=== PATIENT | female | born 1980 | race Caucasian/White ===

== ENCOUNTER 2019-05-15 19:01 | Emergency (ER) | payer OTHER ==
[~2019-05-15] VITALS: Ht 177.8 cm; Wt 102.6 kg
--- NOTE | 2019-05-15 19:35 | ED Integumentary General ---
General Chief Complaint: Skin/Wound Problems Stated Complaint: MRSA ON BACK Source: patient Exam Limitations: no limitations History of Present Illness Date Seen by Provider: May 15, 2019 Time Seen by Provider: 19:34 Initial Comments 38-year-old female presents with "MRSA on my back" patient reports a previous history there is had Surgeries on a couple of home. She reports that usually requires clindamycin. That she started noticing the symptoms yesterday. She does not have any fevers chills. Allergies and Home Medications Home Medications Clindamycin HCl 300 Mg Capsule, 300 MG PO TID Prescribed by: KAYLEIGH MORELOS on 05/15/191946 Patient Home Medication List Home Medication List Reviewed: Yes Review of Systems Review of Systems Constitutional: no symptoms reported EENTM: no symptoms reported Cardiovascular: no symptoms reported Gastrointestinal: no symptoms reported Genitourinary: no symptoms reported Skin: see HPI Past Dorasny-Dumzcg-Mdfxti Hx Past Med/Social Hx: Reviewed Nursing Past Med/Soc Hx Patient Social History Recent Foreign Travel: No Contact w/Someone Who Travel: No Physical Abuse: No Sexual Abuse: No Mistreated: No Fear: No Physical Exam Vital Signs Vital Signs - First Documented 05/15/19 05/15/19 19:34 20:08 Temp 36.4 Pulse 78 Resp 18 B/P (MAP) 133/88 (103) Pulse Ox 98 O2 Delivery Room Air Capillary Refill : General Appearance: WD/WN, no apparent distress Cardiovascular: regular rate, rhythm Respiratory: lungs clear, normal breath sounds, no respiratory distress Back: No vertebral tenderness Extremities: normal range of motion Neurologic/Psychiatric: normal mood/affect, oriented x 3 Skin: other (small area approximately 1.5 cm that is erythematous with some induration but no abscess. There is a scab over the indurated area.) Progress/Results/Core Measures Results/Orders Vital Signs/I&O 05/15/19 05/15/19 19:34 20:08 Temp 36.4 Pulse 78 84 Resp 18 18 B/P (MAP) 133/88 (103) 144/78 Pulse Ox 98 O2 Delivery Room Air Room Air Departure Impression Primary Impression: Abscess Disposition: 01 HOME, SELF-CARE Condition: Stable Departure-Patient Inst. Patient Instructions: MRSA (DC), Cellulitis (Skin Infection), Adult (DC) Add. Discharge Instructions: The emergency department focuses on treating and ruling out life-threatening diseases. Whenever possible, a diagnosis is given. However, most patients are given an impression based on their history, physical exam, and workup during your brief time in the ER. Information about probable diagnosis and other educational material has been provided. Please take the time to read and understand this information. It is very important that you follow up with a physician as discussed during the visit today. Failure to adhere to your follow-up instructions may lead to severe disability, injury, or so please make sure to keep your appointments or obtain one as requested. Please keep in mind the emergency department is not designed to your primary care or "family doctor" and nonurgent issues are best evaluated by an outpatient physician All discharge instructions reviewed with patient and/or family. Voiced understanding. Scripts Clindamycin HCl (Clindamycin HCl) 300 Mg Capsule 300 MG PO TID for 10 Days, #30 CAP Prov: KAYLEIGH MORELOS DO 05/15/19 KAYLEIGH MORELOS DO May 15, 2019 19:35
[2019-05-15] MEDS ORDERED: CLIN300C11 PO (19:47)
[2019-05-15 20:08] VITALS: BP 144/78
--- OUTSIDE RECORDS SUMMARY | 2019-05-24 19:42 | XMS REPORT ---
Author Author Elaine PÉREZ Organization [facility] [address] Address [address] [place] [address] Care Team Providers Care Door Manager Name Role Phone ZARA PÉREZ Unavailable PROBLEMS Unknown Problems ALLERGIES Substance Reaction Event Type Date Status CODIENE Unknown Non Drug Allergy Feb, Active ENCOUNTERS Encounter Location Date Diagnosis [facility] [address] [place] [address] Mar, 18 [facility] [address] [place] [address] Mar, 18 [facility] [address] [place] [address] Feb, 18 Caries K02.9 and Dental examination Z01.20 [facility] [address] [id number] [address] [place] [phone] Apr, Dental examination Z01.20 [facility] [address] [id number] [address] [place] [address] [phone] Apr, Dental examination Z01.20 [facility] [address] [id number] [address] [place] [phone] Mar, Dental examination Z01.20 [facility] [address] [id number] [address] [place] [address] [phone] Feb, Dental examination Z01.20 [facility] [address] [id number] [address] [place] [phone] Jan, Encounter for dental examina tion and cleaning without abnormal findings Z01.20 IMMUNIZATIONS No Known Immunizations SOCIAL HISTORY Never Assessed REASON FOR VISIT ANDREW- tleesau PLAN OF CARE Activity Details Follow Up Next available Reason:One ho ur extraction #[address] Rodriguez per patient request VITAL SIGNS Blood pressure systolic 134 mmHg 2018-03-01 Blood pressure diastolic 98 mmHg 2018-03-01 MEDICATIONS Medication Instructions Dosage Frequency Start Date End Date Duration S tatus Zoloft 50 MG Orally Once a day 1 tablet 24h Not-Taking Brussels 5-325 MG Orally every 6 hrs 1 tablet as needed 6h 4 days Not-Taking Magic Mouthwash Apply medicated swab to sore areas of the mouth to numb the pain As needed Dip cotton swab into medication Feb, As needed Active Amoxicillin 500 MG Orally 4 times a day 2 capsules stat and then take 1 capsule 6h Feb, 10 days Active Hydrocodone Bitartrate 10 MG Orally every 12 hrs 1 capsule 12h Active Xanax 1 MG Orally Twice a day 1 tablet 12h A ctive RESULTS No Results PROCEDURES Procedure Date Ordered Result Body Site LTD ORAL EVALUATION - PROBLEM FOCUS Mar 01, 2018 PANORAMIC FILM SEE ALSO CODE [id number] Mar 01, 2018 Billing Notes on claim Mar 01, 2018 INSTRUCTIONS MEDICATIONS ADMINISTERED No Known Medications MEDICAL (GENERAL) HISTORY Type Description Date Surgical History MRSA Surgical History TUBAL LIGATION Surgical History Hysterectomy
--- OUTSIDE RECORDS SUMMARY | 2019-05-24 19:42 | XMS REPORT ---
Author Author SARAHY Elainethaddeus SHOEMAKER Organization [facility] Address [address] [place] [address] Care Team Providers Care Fire Prevention Research Engineer Name Role Phone HARDY WEATHERSA Unavailable PROBLEMS Unknown Problems ALLERGIES Substance Reaction Event Type Date Status CODIENE Unknown Non Drug Allergy Mar, Active ENCOUNTERS Encounter Location Date Diagnosis [facility] [address] [place] [address] Apr, 19 [facility] [address] [place] [phone] Apr, 19 [facility] [address] [place] [phone] Mar, 18 Dental examination Z01.20 and Caries K02.9 [facility] [address] [place] [phone] Feb, 18 Caries K02.9 and Dental examination Z01.20 [facility] [id number] [place] [phone] Apr, Dental examination Z01.20 [facility] [address] [id number] [address] [place] [phone] Apr, Dental examination Z01.20 [facility] [address] [id number] [address] [place] [phone] Mar, Dental examination Z01.20 [facility] [address] [facility] [id number] [address] [place] [phone] Feb, Dental examination Z01.20 [facility] [address] [id number] [address] [place] [phone] Jan, Encounter for dental examina tion and cleaning without abnormal findings Z01.20 IMMUNIZATIONS No Known Immunizations SOCIAL HISTORY Never Assessed REASON FOR VISIT Extraction DA/IK PLAN OF CARE Activity Details Follow Up REST Reason: VITAL SIGNS Blood pressure systolic 137 mmHg 2018-03-14 Blood pressure diastolic 95 mmHg 2018-03-14 MEDICATIONS Medication Instructions Dosage Frequency Start Date End Date Duration S tatus Magic Mouthwash Apply medicated swab to sore areas of the mouth to numb the pain As needed Dip cotton swab into medication Feb, As needed Not-Taking Amoxicillin 500 MG Orally 4 times a day 2 capsules stat and then take 1 capsule 6h Feb, 10 days Active Zoloft 50 MG Orally Once a day 1 tablet 24h Not-Taking Hydrocodone Bitartrate 10 MG Orally every 12 hrs 1 capsule 12h Active Xanax 1 MG Orally Twice a day 1 tablet 12h A ctive RESULTS No Results PROCEDURES Procedure Date Ordered Result Body Site EXTRAC ERUPTED TOOTH/EXPOSED ROOT Mar 14, 2018 Billing Notes on claim Mar 14, 2018 INSTRUCTIONS MEDICATIONS ADMINISTERED No Known Medications MEDICAL (GENERAL) HISTORY Type Description Date Surgical History MRSA Surgical History TUBAL LIGATION Surgical History Hysterectomy
--- OUTSIDE RECORDS SUMMARY | 2019-05-24 19:42 | XMS REPORT ---
Author Author Elaine WILSON Organization [facility] [place] Address [address] [place] [address] Care Team Providers Care Department Helper Name Role Phone KATIE RONI Unavailable PROBLEMS Type Condition ICD9-CM Code POV11-WL Code Onset Dates Condition S tatus SNOMED Code Problem MRSA (methicillin resistant Staphylococcus aureus) inf ection A49.02 Nov, 0 116879457 Problem Pruritus L29.9 Dec, 0 9980807 00 Problem Asthma, moderate persistent, poorly-controlled J45 .40 Mar, 0 627678904 Problem Vaginal odor N89.8 Sep, 0 3737 78587 Problem Seasonal allergic rhinitis due to pollen J30.1 Jul, 0 05429620 Problem Muscle spasm of back M62.830 Dec, 0 624154407 Problem Postoperative examination Z09 Jun, 0 611300237 Problem Tobacco use Z72.0 Dec, 0 92555 3000 Problem Severe obesity (BMI 35.0-39.9) with comorbidity E6 6.01 Sep, 0 552022444 Problem Wax in ear H61.20 August, 0 774519 002 Problem Seasonal allergic rhinitis due to pollen 477.0 Jul, 0 64667545 Problem Congestion of upper airway J98.8 May, 0 934614094 Problem Prediabetes R73.03 Sep, 0 17607 8002 Problem Asthma, moderate persistent, poorly-controlled 493.90 Mar, 0 84473633 Problem Family history of heart disease V17.49 August, 0 051080300 Problem Migraine headache 346.90 May, 0 52468087 Problem Elevated fasting glucose 790.21 Sep, 0 779566101 Problem Pruritus 698.9 Dec, 0 6533340 00 Problem MRSA (methicillin resistant Staphylococcus aureus) inf ection 041.12 Nov, 0 067503901 Problem Facial abscess 682.0 Mar, 0 20 4955434 Problem Infectious otitis externa H60.399 10 Dec, 2010 0 08479246 Problem Vaginal odor 625.8 Sep, 0 3737 17797 Problem Hx MRSA infection V12.04 Feb, 0 595477400 Problem Right wrist pain 719.43 11 May, 2016 0 48861999 Problem V22.2 Mar, 0 1216118 02 Problem Pelvic pain in female 625.9 Apr, 0 446312040 Problem Smoking 305.1 Mar, 0 1992890 07 Problem Tobacco use 305.1 16 Dec, 2014 0 88638 3000 Problem Allergic rhinoconjunctivitis J30.9 Mar, 6 0 30802553 Problem Back pain, chronic 724.5 Mar, 0 727220461 Problem Asthma 493.90 Nov, 0 9846801 01 Problem History of endometrial ablation Z98.890 Apr, 0 765817832566438 Problem Family history of hypothyroidism V18.19 August, 0 684162986 Problem History of endometrial ablation V12.59 Apr, 0 881384167977910 Problem Muscle spasm of back 724.8 Dec, 0 707437463 Problem Acute recurrent ethmoidal sinusitis 461.2 30 A , 2017 0 22126825 Problem Congestion of upper airway 519.8 11 May, 2014 0 440608230 Problem Pelvic pain in female R10.2 Apr, 0 162090432 Problem Well woman exam with routine gynecological exam V72.31 04 Feb, 2011 0 134593654981806 Problem , twins, delivered O30.009 August, 0 Problem Prediabetes 790.29 07 Sep, 2015 0 87423 8002 Problem , twins, delivered 651.01 August, 0 591521580 Problem Normal vaginal delivery 650 August, 0 87872885 Problem Z34.90 Mar, 0 7403200 02 Problem Allergic rhinoconjunctivitis 477.9 Mar, 6 0 80344874 Problem Normal vaginal delivery O80 August, 0 28683263 Problem Right wrist pain M25.531 11 May, 2016 0 86113451 Problem Facial abscess L02.01 Mar, 0 20 2659499 Problem Family history of heart disease Z82.49 August, 0 138238139 Problem Elevated fasting glucose R73.01 Sep, 0 876111166 Problem Well woman exam with routine gynecological exam Z01.419 Feb, 0 726132384099544 Problem Infectious otitis externa 380.10 10 Dec, 2010 0 16930116 Problem Migraine headache G43.909 May, 0 71231413 Problem Medication reaction T50.905A Dec, 0 Problem Smoking F17.200 Mar, 0 9351990 07 Problem Severe obesity (BMI 35.0-39.9) with comorbidity 278.01 Sep, 0 218866489 Problem Asthma J45.909 Nov, 0 5289384 01 Problem Postoperative examination V67.00 Jun, 0 931308352 Problem Cutaneous abscess of groin L02.214 15 Oct, 2013 0 899174394 Problem Acute recurrent ethmoidal sinusitis J01.21 30 A 2017 0 82220492 Problem Other chronic pain G89.29 Active 8 2359269 Problem Type 2 diabetes mellitus with unspecified complications E11.8 Active 38880497 Problem Hx MRSA infection Z86.14 Feb, 0 478509599 Problem Wax in ear 380.4 August, 0 644474 002 Problem Type 2 diabetes mellitus with hyperglycemia E11.65 Active 150549525555014 Problem Cellulitis and abscess of trunk 682.2 Jul, 0 542044923 Problem Cutaneous abscess of groin 682.2 15 Oct, 2013 0 988558598 Problem [place] eye disease H10.029 11 May, 2014 0 364545386 Problem Family history of hypothyroidism Z83.49 August, 0 451706991 Problem [place] eye disease 372.03 11 May, 2014 0 520736386 Problem Anxiety F41.9 Active 29002971 Problem Back pain, chronic M54.9 10 Mar, 2012 0 125025861 Problem Elevated triglycerides with high cholesterol E78.2 Active 758076181 Problem Cellulitis and abscess of trunk L03.319 Jul, 0 234648220 Problem MRSA (methicillin resistant Staphylococcus aureus) A49.02 Active 173944507 Problem Depressed mood F32.9 Active 67687 9004 Problem Medication reaction E947.9 Dec, 0 ALLERGIES No Information ENCOUNTERS Encounter Location Date Diagnosis [facility] [address] [place] [address] August, [facility] [place] [id number] [place] [phone] August, [facility] [place] [id number] [place] [address], [place] [address] August, Elevated fasting glucose R73.01 ; Elevated triglycerides with high cholesterol E78.2 and Type 2 diabetes mellitus with unspecified complications E11.8 [facility] [id number] [place] [address], [place] [address] August, [facility] [address] [address] August, [facility] [address] [address] August, [facility] [place] [address] [place] [address], [place] [address] August, [facility] [place] [address] [place] [phone] August, Anxiety F41.9 [facility] [address] [facility] [id number] [address] [place] [address] August, [facility] [place] [id number] [place] [address] August, [facility] [place] [address] [place] [phone] August, Elevated fasting glucose R73.01 ; Type 2 diabetes mellitus with unspecified complications E11.8 and Acute mucoid otitis media of both ears H65.113 [facility] [address] [place] [address] Jul, Low back pain M54.5 [facility] [place] [address] [place] [address] Jul, Low back pain M54.5 [facility] [address] [place] [address] Jul, Anxiety F41.9 [facility] [address] [place] [address], [place] [address] Jun, [facility] [address] [place] [phone] Jun, Anxiety F41.9 ; Low back pain M54.5 and Type 2 diabetes mellitus with unspecified complications E11.[address] [address] Jun, [address] [address] May, Abdominal wall hernia K43.9 ; Anxiety F41.9 ; Depressed mood F32.9 ; Elevated triglycerides with high cholesterol E78.2 ; Type 2 diabetes mellitus with unspecified complications E11.8 ; Type 2 diabetes mellitus with hyperglycemia E11.65 and Former smoker Z87.891 [facility] [address] [facility] [id number] [address] [place] [address] May, [address] [address] May, Elevated fasting glucose R73.01 and Elevated triglycerides with high cholesterol E78.[address] [address] May, Anxiety F41.9 and Low back pain M54.[address] [address] May, Other specified abdominal hernia with obstruction and without gangrene K45.0 ; Other chronic pain G89.29 ; Depressed mood F32.9 ; Anxiety F41.9 ; Former smoker Z87.891 ; Elevated fasting glucose R73.01 and Elevated triglycerides with high cholesterol E78.[address] [address] May, Throat pain R07.0 ; Left acute suppurative otitis media H66.002 and Depressed mood F32.[address] [address] May, [address] [address] May, [address] [address] May, [facility] [address] [place] [address] May MRSA (methicillin resistant Staphylococcus aureus) A49.02 [facility] [address] [place] [address] May MRSA (methicillin resistant Staphylococcus aureus) A49.02 [facility] [address] [place] [address] Apr MRSA (methicillin resistant Staphylococcus aureus) A49.02 [facility] [address] [place] [address] Apr, Anxiety F41.9 ; Umbilical hernia without obstruction and without gangrene K42.9 ; Other chronic pain G89.29 and Low back pain M54.[address] [place] [address] 14 Apr, 19 Caries K02.9 ; Dental examination Z01.20 and Periodontitis K05.[address] [place] [phone] 03 Apr, 19 Dental examination Z01.20 and Caries K02.9 [facility] [address] [id number] [address] [place] [phone] 30 Mar, [address] [place] [address] 10 Mar, 18 Dental examination Z01.20 and Caries K02.[address] [place] [address] 27 Feb, 18 Caries K02.9 and Dental examination Z01.20 [facility] [address] [id number] [address] [place] [phone] Feb, [facility] [address] [id number] [address] [place] [phone] Jan, [facility] [address] [id number] [address] [place] [phone] Apr, Dental examination Z01.20 [facility] [address] [id number] [address] [place] [phone] Apr, Dental examination Z01.20 [facility] [address] [id number] [address] [place] [address] Mar, Dental examination Z01.20 [facility] [address] [id number] [address] [place] [phone] Feb, Dental examination Z01.20 [facility] [address] [facility] [id number] [address] [place] [address] Jan, Encounter for dental examina tion and cleaning without abnormal findings Z01.20 IMMUNIZATIONS No Known Immunizations SOCIAL HISTORY Never Assessed REASON FOR VISIT Waiting for call back PLAN OF CARE VITAL SIGNS MEDICATIONS Unknown Medications RESULTS No Results PROCEDURES No Known procedures INSTRUCTIONS MEDICATIONS ADMINISTERED No Known Medications MEDICAL (GENERAL) HISTORY Type Description Date Medical History asthma Medical History history of MRSA Medical History migraines Medical History muscle spasms of back Medical History prediabeties Medical History seasonal allergies Medical History obesity Surgical History MRSA Surgical History TUBAL LIGATION Surgical History Hysterectomy Surgical History hernia surgery Hospitalization History see surgical history
--- OUTSIDE RECORDS SUMMARY | 2019-05-24 19:42 | XMS REPORT ---
Author Author Elaine HERNANDEZ Organization [facility] Address [address] [place] [address] Care Team Providers Care Cable Splicer Name Role Phone SHAHEED HERNANDEZ Unavailable PROBLEMS Type Condition ICD9-CM Code DFO90-LW Code Onset Dates Condition S tatus SNOMED Code Problem MRSA (methicillin resistant Staphylococcus aureus) inf ection A49.02 Nov, 0 286379638 Problem Pruritus L29.9 Dec, 0 8597195 00 Problem Asthma, moderate persistent, poorly-controlled J45 .40 Mar, 0 095051020 Problem Vaginal odor N89.8 Sep, 0 3737 83518 Problem Seasonal allergic rhinitis due to pollen J30.1 Jul, 0 32323997 Problem Muscle spasm of back M62.830 Dec, 0 804871938 Problem Postoperative examination Z09 Jun, 0 360634399 Problem Tobacco use Z72.0 Dec, 0 76058 3000 Problem Severe obesity (BMI 35.0-39.9) with comorbidity E6 6.01 Sep, 0 776066827 Problem Wax in ear H61.20 August, 0 627814 002 Problem Seasonal allergic rhinitis due to pollen 477.0 Jul, 0 39793316 Problem Congestion of upper airway J98.8 May, 0 726139727 Problem Prediabetes R73.03 Sep, 0 77030 8002 Problem Asthma, moderate persistent, poorly-controlled 493.90 Mar, 0 48106364 Problem Family history of heart disease V17.49 August, 0 323422587 Problem Migraine headache 346.90 May, 0 03862031 Problem Elevated fasting glucose 790.21 Sep, 0 123462312 Problem Pruritus 698.9 Dec, 0 3186708 00 Problem MRSA (methicillin resistant Staphylococcus aureus) inf ection 041.12 Nov, 0 138908570 Problem Facial abscess 682.0 Mar, 0 20 6498041 Problem Infectious otitis externa H60.399 10 Dec, 2010 0 56457416 Problem Vaginal odor 625.8 Sep, 0 3737 46102 Problem Hx MRSA infection V12.04 Feb, 0 339042659 Problem Right wrist pain 719.43 11 May, 2016 0 03642716 Problem V22.2 02 Mar, 2007 0 4680016 02 Problem Pelvic pain in female 625.9 Apr, 0 214664077 Problem Smoking 305.1 Mar, 0 5302271 07 Problem Tobacco use 305.1 16 Dec, 2014 0 58478 3000 Problem Allergic rhinoconjunctivitis J30.9 Mar, 201 6 0 59185668 Problem Back pain, chronic 724.5 Mar, 0 460150249 Problem Asthma 493.90 Nov, 0 4425208 01 Problem History of endometrial ablation Z98.890 Apr, 0 785149441691182 Problem Family history of hypothyroidism V18.19 August, 0 151306729 Problem History of endometrial ablation V12.59 Apr, 0 963748978059168 Problem Muscle spasm of back 724.8 Dec, 0 822348592 Problem Acute recurrent ethmoidal sinusitis 461.2 30 A , 2017 0 26561670 Problem Congestion of upper airway 519.8 11 May, 2014 0 674613818 Problem Pelvic pain in female R10.2 Apr, 0 753498286 Problem Well woman exam with routine gynecological exam V72.31 04 Feb, 2011 0 [id number] Problem , twins, delivered O30.009 August, 0 Problem Prediabetes 790.29 07 Sep, 2015 0 78374 8002 Problem , twins, delivered 651.01 August, 0 216893563 Problem Normal vaginal delivery 650 August, 0 56735042 Problem Z34.90 Mar, 0 0579634 02 Problem Allergic rhinoconjunctivitis 477.9 Mar, 201 6 0 95524981 Problem Normal vaginal delivery O80 August, 0 73857350 Problem Right wrist pain M25.531 11 May, 2016 0 29269846 Problem Facial abscess L02.01 Mar, 0 20 6573518 Problem Family history of heart disease Z82.49 August, 0 543736764 Problem Elevated fasting glucose R73.01 Sep, 0 155031730 Problem Well woman exam with routine gynecological exam Z01.419 Feb, 0 513734616963664 Problem Infectious otitis externa 380.10 10 Dec, 2010 0 83404215 Problem Migraine headache G43.909 May, 0 56184220 Problem Medication reaction T50.905A Dec, 0 Problem Smoking F17.200 Mar, 0 2388465 07 Problem Severe obesity (BMI 35.0-39.9) with comorbidity 278.01 Sep, 0 369956273 Problem Asthma J45.909 Nov, 0 6793248 01 Problem Postoperative examination V67.00 Jun, 0 204109157 Problem Cutaneous abscess of groin L02.214 Oct, 0 318485947 Problem Acute recurrent ethmoidal sinusitis J01.21 30 A 2017 0 04918510 Problem Other chronic pain G89.29 Active 8 6038497 Problem Type 2 diabetes mellitus with unspecified complications E11.8 Active 96790692 Problem Hx MRSA infection Z86.14 Feb, 0 956231854 Problem Wax in ear 380.4 August, 0 683521 002 Problem Type 2 diabetes mellitus with hyperglycemia E11.65 Active 133105066266056 Problem Cellulitis and abscess of trunk 682.2 Jul, 0 303570649 Problem Cutaneous abscess of groin 682.2 15 Oct, 2013 0 131103980 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, 2014 0 403999735 Problem Family history of hypothyroidism Z83.49 August, 0 537422428 Problem Arrington eye disease 372.03 11 May, 2014 0 618455835 Problem Anxiety F41.9 Active 35545855 Problem Back pain, chronic M54.9 10 Mar, 2012 0 560233579 Problem Elevated triglycerides with high cholesterol E78.2 Active 597080203 Problem Cellulitis and abscess of trunk L03.319 Jul, 0 448706325 Problem MRSA (methicillin resistant Staphylococcus aureus) A49.02 Active 295446485 Problem Depressed mood F32.9 Active 09330 9004 Problem Medication reaction E947.9 Dec, 0 ALLERGIES No Information ENCOUNTERS Encounter Location Date Diagnosis [facility] [address] [place] [address] 26 Sep, 2018 Anxiety F41.9 and Low back pain M54.5 [facility] [place] [address] [place] [address] 18 Sep, 2018 Type 2 diabetes mellitus with hyperglycemia E11.65 [facility] [place] [address] [place] [address] 14 Sep, 2018 [facility] [place] [id number] [place] [address] [address] Sep, [facility] [place] [id number] [place] [address] [place] [address] Sep, Low back pain M54.5 [facility] [place] [id number] [place] [address] [place] [address] 05 Sep, 2018 Anxiety F41.9 [facility] [place] [id number] [place] [address] [place] [address] Sep, Elevated fasting glucose R73.01 ; Elevated triglycerides with high cholesterol E78.2 and Type 2 diabetes mellitus with unspecified complications E11.8 [facility] [place] [id number] [place] [address] [place] [address] August, [facility] [place] [id number] [place] [address] [place] [address] August, [facility] [place] [id number] [place] [address] [place] [address] August, [facility] [place] [id number] [place] [address] [place] [address] August, [facility] [place] [id number] [place] [address], [place] [address] August, [facility] [place] [id number] [place] [address] [address] August, [facility] [place] [id number] [place] [address] [place] [address] August, Elevated fasting glucose R73.01 ; Elevated triglycerides with high cholesterol E78.2 and Type 2 diabetes mellitus with unspecified complications E11.8 [facility] [place] [id number] [place], [place] [address] [place] [address] August, [facility] [address] [place] [address] August, [facility] [place] [id number] [place], [place] [address] [place] [address] August, [facility] [address] [address] August, [address] [address] August, Anxiety F41.9 [place] [address] [facility] [id number] [address] [place] [address] August, [address] [address] August, [address] [address] August, Elevated fasting glucose R73.01 ; Type 2 diabetes mellitus with unspecified complications E11.8 and Acute mucoid otitis media of both ears H65.[address] [address] Jul, Low back pain M54.[address] [address] Jul, Low back pain M54.[address] [address] Jul, Anxiety F41.[address] [address] Jun, [address] [address] Jun, Anxiety F41.9 ; Low back pain M54.5 and Type 2 diabetes mellitus with unspecified complications E11.[address] [address] Jun, [address] [address] May, Abdominal wall hernia K43.9 ; Anxiety F41.9 ; Depressed mood F32.9 ; Elevated triglycerides with high cholesterol E78.2 ; Type 2 diabetes mellitus with unspecified complications E11.8 ; Type 2 diabetes mellitus with hyperglycemia E11.65 and Former smoker Z87.891 [place] [address] [facility] [id number] [address] [place] [address] May, [address] [address] May, Elevated fasting glucose R73.01 and Elevated triglycerides with high cholesterol E78.[address] [address] May, Anxiety F41.9 and Low back pain M54.[address] [address] 15 May, 2018 Other specified abdominal hernia with obstruction and without gangrene K45.0 ; Other chronic pain G89.29 ; Depressed mood F32.9 ; Anxiety F41.9 ; Former smoker Z87.891 ; Elevated fasting glucose R73.01 and Elevated triglycerides with high cholesterol E78.[address] [address] May, Throat pain R07.0 ; Left acute suppurative otitis media H66.002 and Depressed mood F32.[address] [address] May, [address] [address] May, [address] [address] May, [place] [address] [place] [address] May MRSA (methicillin resistant Staphylococcus aureus) A49.02 [place] [address] [place] [address] May MRSA (methicillin resistant Staphylococcus aureus) A49.[address] [address] Apr MRSA (methicillin resistant Staphylococcus aureus) A49.[address] [address] Apr, Anxiety F41.9 ; Umbilical hernia without obstruction and without gangrene K42.9 ; Other chronic pain G89.29 and Low back pain M54.5 [facility] [address] [place] [address] 14 Apr, 19 Caries K02.9 ; Dental examination Z01.20 and Periodontitis K05.30 [facility] [address] [place] [address] 03 Apr, 19 Dental examination Z01.20 and Caries K02.9 [facility] [address] [facility] [id number] [address] [place] [address] 30 Mar, 2018 [facility] [address] [place] [address] Mar, 18 Dental examination Z01.20 and Caries K02.9 [facility] [address] [place] [address] 27 Feb, 18 Caries K02.9 and Dental examination Z01.20 [facility] [address] [facility] [id number] [address] [place] [address] Feb, [facility] [address] [id number] [address] [place] [address] Jan, [facility] [address] [id number] [address] [place] [phone] Apr, Dental examination Z01.20 [facility] [id number] [place] [id number] Apr, Dental examination Z01.20 [facility] [address] [facility] [id number] [address] [place] [address] Mar, Dental examination Z01.20 [facility] [address] [id number] [address] [place] [phone] Feb, Dental examination Z01.20 [facility] [address] [facility] [id number] [address] [place] [address] Jan, Encounter for dental examina tion and cleaning without abnormal findings Z01.20 IMMUNIZATIONS No Known Immunizations SOCIAL HISTORY Never Assessed REASON FOR VISIT Medication refill request PLAN OF CARE VITAL SIGNS MEDICATIONS Medication Instructions Dosage Frequency Start Date End Date Duration S tatus Xanax 1 MG Orally 3 times a day 1 tablet 8h May, 28 days Active Hydrocodone-Acetaminophen 10-325 MG Orally TID PRN 1 tablet as need ed Jun, 28 days Active Trulicity 0.75 MG/0.5ML Subcutaneous once weekly as directed May, 4 weeks Active RESULTS No Results PROCEDURES No Known procedures [...]
--- OUTSIDE RECORDS SUMMARY | 2019-05-24 19:43 | XMS REPORT ---
Author Author Elaine WILSON Organization [employer] Address Unknown Phone Unavailable Care Team Providers Care Boiler Water Tester Name Role Phone SUNI WILSON CP Unavailable Allergies, Adverse Reactions, Alerts Substance Reaction Event Type CODIENE Info Not Available Non Drug Allergy Problems Problem Type Condition Code Onset Dates Condition Statu s Assessment Encounter for dental examina tion and cleaning without abnormal findings Z01.20 Active Medications Medication Code System Code Instructions Start Date End Date Status Dosage Hydrocodone Bitartrate [facility] [address]-70 10 MG Orally every 12 hrs 1 capsule Xanax [facility] [address]-16 1 MG Orally Twice a day 1 tablet Zoloft [facility] [address]-62 50 MG Orally Once a day 1 tablet Procedures Procedure Coding System Code Date INTRAORL-PERIAPICAL 1 FILM 08431 CPT-4 D0220 Feb 03, 2016 INTRAORL-PERIAPICAL EA ADD FILM CPT-4 D0230 Feb 03, 2016 COMP ORAL EVALUATION - NEW/EST PT CPT-4 D0150 Feb 03, 2016 Full mouth debridement CPT-4 D4355 Feb 02, 2 016 INTRAORL-PERIAPICAL EA ADD FILM CPT-4 D0230 Feb 03, 2016 BITEWINGS - FOUR FILMS CPT-4 D0274 Feb 02, 2 016 TOPICAL FLUORIDE VARNISH CPT-4 D1206 Feb 03, 2016 Results No Known Results Summary Purpose [employer] Submission
--- OUTSIDE RECORDS SUMMARY | 2019-05-24 19:43 | XMS REPORT ---
Author Author Elaine Montoya Organization [facility] Address Unknown Care Team Providers Care Adhesion Tester Name Role Phone OLGA Montoya Unavailable PROBLEMS Unknown Problems ALLERGIES Substance Reaction Event Type Date Status CODIENE Unknown Non Drug Allergy Apr, Active SOCIAL HISTORY No smoking Hx information available PLAN OF CARE Activity Details Follow Up prn Reason:hygiene VITAL SIGNS Blood pressure systolic 128 mmHg 2016-05-05 Blood pressure diastolic 96 mmHg 2016-05-05 MEDICATIONS Medication Instructions Dosage Frequency Start Date End Date Duration S tatus [place] 5-325 MG Orally every 6 hrs 1 tablet as needed 6h 4 days Active Hydrocodone Bitartrate 10 MG Orally every 12 hrs 1 capsule 12h Active Zoloft 50 MG Orally Once a day 1 tablet 24h Active Xanax 1 MG Orally Twice a day 1 tablet 12h A ctive RESULTS No Results PROCEDURES Procedure Date Ordered Related Diagnosis Body Site AMALGAM-ONE SURFACE PRIMARY/PERM May 05, 2016 AMALGAM-TWO SURFACES PRIMARY/PERM May 05, 2016 IMMUNIZATIONS No Known Immunizations
--- OUTSIDE RECORDS SUMMARY | 2019-05-24 19:43 | XMS REPORT ---
Author Author Elaine Montoya Organization [facility] Address Unknown Care Team Providers Care Wigs Salesperson Name Role Phone OLGA Montoya Unavailable PROBLEMS Unknown Problems ALLERGIES Substance Reaction Event Type Date Status CODIENE Unknown Non Drug Allergy Apr, Active SOCIAL HISTORY No smoking Hx information available PLAN OF CARE Activity Details Follow Up prn Reason:fillings VITAL SIGNS Blood pressure systolic 124 mmHg 2016-04-28 Blood pressure diastolic 94 mmHg 2016-04-28 MEDICATIONS Medication Instructions Dosage Frequency Start Date End Date Duration S tatus Xanax 1 MG Orally Twice a day 1 tablet 12h A ctive Hydrocodone Bitartrate 10 MG Orally every 12 hrs 1 capsule 12h Active Zoloft 50 MG Orally Once a day 1 tablet 24h Active [place] 5-325 MG Orally every 6 hrs 1 tablet as needed 6h 4 days Active RESULTS No Results PROCEDURES Procedure Date Ordered Related Diagnosis Body Site RESIN COMPOS - 2 SURFACES ANTERIOR Apr 28, 2016 RESIN COMPOS - 3 SURFACES ANTERIOR Apr 28, 2016 Billing Notes on claim Apr 28, 2016 IMMUNIZATIONS No Known Immunizations
--- OUTSIDE RECORDS SUMMARY | 2019-05-24 19:43 | XMS REPORT ---
Author Author Elaine Montoya Organization [facility] Address Unknown Care Team Providers Care Preschool Assistant Teacher Name Role Phone OLGA Montoya Unavailable PROBLEMS Unknown Problems ALLERGIES Substance Reaction Event Type Date Status CODIENE Unknown Non Drug Allergy Mar, Active SOCIAL HISTORY No smoking Hx information available PLAN OF CARE Activity Details Follow Up prn Reason:upper fillings VITAL SIGNS Blood pressure systolic 131 mmHg 2016-03-16 Blood pressure diastolic 88 mmHg 2016-03-16 MEDICATIONS Medication Instructions Dosage Frequency Start Date End Date Duration S tatus [place] 5-325 MG Orally every 6 hrs 1 tablet as needed 6h 4 days Active Hydrocodone Bitartrate 10 MG Orally every 12 hrs 1 capsule 12h Active Zoloft 50 MG Orally Once a day 1 tablet 24h Active Xanax 1 MG Orally Twice a day 1 tablet 12h A ctive RESULTS No Results PROCEDURES Procedure Date Ordered Related Diagnosis Body Site AMALGAM-3 SURFACES PRIMARY/PERM Mar 16, 2016 Billing Notes on claim Mar 16, 2016 IMMUNIZATIONS No Known Immunizations
--- OUTSIDE RECORDS SUMMARY | 2019-05-24 19:43 | XMS REPORT | Continuity of Care Document ---
Author Organization Unknown Address Unknown Phone Unavailable Allergies There is no data. Medications There is no data. Problems There is no data. Procedures There is no data. Results Test Result Range A1C - 09/06/18 08:11 HEMOGLOBIN A1c 5.4 % of total Hgb <5.7 CBC - 03/25/19 07:53 WHITE BLOOD CELL COUNT 7.7 Thousand/uL 3 .8-10.8 RED BLOOD CELL COUNT 4.65 Million/uL 3.8 0-5.10 HEMOGLOBIN 13.4 g/dL 11.7-15.5 HEMATOCRIT 40.3 % 35.0-45.0 MCV 86.7 fL 80.0-100.0 MCH 28.8 pg 27.0-33.0 MCHC 33.3 g/dL 32.0-36.0 RDW 12.9 % 11.0-15.0 PLATELET COUNT 290 Thousand/uL 140-400 MPV 11.7 fL 7.5-12.5 ABSOLUTE NEUTROPHILS 4081 cells/uL 1500- 7800 ABSOLUTE LYMPHOCYTES 2549 cells/uL 850-3 900 ABSOLUTE MONOCYTES 524 cells/uL 200-950 ABSOLUTE EOSINOPHILS 485 cells/uL 15-500 ABSOLUTE BASOPHILS 62 cells/uL 0-200 NEUTROPHILS 53 % NRG LYMPHOCYTES 33.1 % NRG MONOCYTES 6.8 % NRG EOSINOPHILS 6.3 % NRG BASOPHILS 0.8 % NRG PDM - 09 PANEL (PROFILE 1) - 03/25/19 07 :53 Prescribed Drug 1 Alprazolam NRG Creatinine 140.8 mg/dL > or = 20.0 pH 6.3 4.5-9.0 Oxidant NEGATIVE mcg/mL <200 Amphetamines NEGATIVE ng/mL <500 medMATCH Amphetamines CONSISTENT NRG Benzodiazepines NEGATIVE ng/mL <100 medMATCH Benzodiazepines INCONSISTENT N RG Marijuana Metabolite NEGATIVE ng/mL <20 medMATCH Marijuana Metab CONSISTENT NRG Cocaine Metabolite NEGATIVE ng/mL <150 medMATCH Cocaine Metab CONSISTENT NRG Opiates NEGATIVE ng/mL <100 medMATCH Opiates INCONSISTENT NRG Oxycodone NEGATIVE ng/mL <100 medMATCH Oxycodone CONSISTENT NRG COMMENT NRG Prescribed Drug 2 Hydrocodone NRG Barbiturates NEGATIVE ng/mL <300 medMATCH Barbiturates CONSISTENT NRG Methadone Metabolite NEGATIVE ng/mL <100 medMATCH Methadone Metab CONSISTENT NRG Phencyclidine NEGATIVE ng/mL <25 medMATCH Phencyclidine CONSISTENT NRG CULTURE, ANAEROBIC AND AEROBIC - 0 14:47 CULTURE, ANAEROBIC BACTERIA W/GRAM STAIN SEE NOTE NRG CULTURE, AEROBIC BACTERIA SEE NOTE NRG Encounters ACCT No. Visit Date/Time Discharge Status Pt. Type Provider Facility Loc./Unit Complaint [id number] 05/18/2019 13:20:00 05/18/2019 23:59: 59 [facility] Outpatient Vicky Sofia [facility] [id number] 05/18/2019 13:20:00 Document Registration [id number] 03/25/2019 08:00:00 Document Registration [id number] 09/06/2018 08:00:00 Document Registration [id number] 05/15/2019 19:02:00 020 20:08:00 DIS Emergency KAYLEIGH MORELOS DO [facility] ER FS MRSA ON BACK
--- OUTSIDE RECORDS SUMMARY | 2019-05-24 19:43 | XMS REPORT ---
Author Author Elaine NOYOLA Organization [facility] Address Unknown Care Team Providers Care Supervisor Claims Name Role Phone SURINDER NOYOLA Unavailable PROBLEMS Type Condition ICD9-CM Code [id number] Code Onset Dates Condition S tatus SNOMED Code Assessment Dental examination Z01.20 Feb, Active [id number] ALLERGIES Substance Reaction Event Type Date Status CODIENE Unknown Non Drug Allergy Feb, Active SOCIAL HISTORY No smoking Hx information available PLAN OF CARE VITAL SIGNS MEDICATIONS Medication Instructions Dosage Frequency Start Date End Date Duration S tatus [place] 5-325 MG Orally every 6 hrs 1 tablet as needed 6h 4 days Active Hydrocodone Bitartrate 10 MG Orally every 12 hrs 1 capsule 12h Active Xanax 1 MG Orally Twice a day 1 tablet 12h A ctive Zoloft 50 MG Orally Once a day 1 tablet 24h Active RESULTS No Results PROCEDURES Procedure Date Ordered Related Diagnosis Body Site LTD ORAL EVALUATION - PROBLEM FOCUS Feb 07, 2016 INTRAORL-PERIAPICAL 1 FILM 67703 Feb 07, 2016 SURG REMOVAL ERUPTED TOOTH Feb 07, 2016 IMMUNIZATIONS No Known Immunizations
== END 2019-05-15 20:08 | disposition home or self-care (01) ==
LOC: EDUNIT# 19:01 → ER FS 19:02
DX: L02.212 Cutaneous abscess of back [any part, except buttock and flank] (principal)
CPT/HCPCS: 99282